=== PATIENT | male | born 1980 | race American Indian/Alaskan Native ===

== ENCOUNTER 2021-10-19 16:44 | Emergency (ER) | payer SELFPAY ==
[2021-10-19 16:49] VITALS: BP 122/79
--- NOTE | 2021-10-19 17:46 | XRay Report ---
Right ankle 3 views INDICATION: Right ankle pain following injury IMPRESSION: There is prominent edema identified within the right ankle. Grossly intact lateral malleo lar and medial malleolar hardware. No acute displaced fracture is identified. There is a chronic appe aring ossific fragment along the dorsal aspect of the navicular bone Signer Name: Lc Roberto MD Signed: 10/19/2021 5:42 PM Workstation Name: [id number]
--- NOTE | 2021-10-19 17:47 | XRay Report ---
Right foot 3 views INDICATION: Right foot pain after injury IMPRESSION: There is prominent soft tissue edema along the dorsal aspect of the distal forefoot. No u nderlying fracture or subluxation is identified. Signer Name: Lc Roberto MD Signed: 10/19/2021 5:42 PM Workstation Name: [id number]
--- NOTE | 2021-10-19 18:20 | Emergency Department Report ---
ED Lower Extremity HPI - General Chief Complaint: Extremity Injury, Lower Stated Complaint: LEG PAIN Time Seen by Provider: 10/19/21 17:01 Source: patient Mode of arrival: Ambulatory Limitations: No Limitations - History of Present Illness Initial Comments: Patient is a 41-year-old male presents emergency room complaints of a right lower leg injury that occurred yesterday. Patient states that he got crushed in between a ash and a door. He states he has been ambulatory since then. He states he has a previous injury to this right lower extremity and he has hardware in place from a surgery. He denies any numbness or weakness. No allergies to meds. - Related Data Previous Rx's Medication Instructions Recorded Last Taken Type Ibuprofen [Motrin 600 MG tab] 600 mg PO Q8H PRN #20 tablet 10/19/21 Unknown Rx traMADoL [Ultram 50 MG tab] 50 mg PO Q6HR PRN #12 tablet 10/19/21 Unknown Rx Allergies Allergy/AdvReac Type Severity Reaction Status Date / Time No Known Allergies Allergy Verified 10/19/21 17:57 ED Review of Systems ROS: Stated complaint: LEG PAIN Other details as noted in HPI Comment: All other systems reviewed and negative ED Past Medical Hx - Medications Home Medications: Home Medications Medication Instructions Recorded Confirmed Last Taken Type Ibuprofen [Motrin 600 MG tab] 600 mg PO Q8H PRN #20 tablet 10/19/21 Unknown Rx traMADoL [Ultram 50 MG tab] 50 mg PO Q6HR PRN #12 tablet 10/19/21 Unknown Rx ED Physical Exam - General Limitations: No Limitations General appearance: alert, in no apparent distress - Head Head exam: Present: atraumatic, normocephalic - Eye Eye exam: Present: normal appearance - ENT ENT exam: Present: mucous membranes moist - Extremities Exam Extremities exam: Present: other (ttp and edema present to the right lateral lower leg, ankle, and foot, ecchymosis present, abrasion present to the right lateral lower leg, FROM, neurovascularly intact) - Neurological Exam Neurological exam: Present: alert, oriented X3 - Psychiatric Psychiatric exam: Present: normal affect, normal mood - Skin Skin exam: Present: warm, dry ED Course Vital Signs 10/19/21 16:48 Temperature 99.7 F H Pulse Rate 116 H Respiratory 15 Rate Blood Pressure 122/79 O2 Sat by Pulse 98 Oximetry ED Lower Extremity MDM - Radiology Data Radiology results: report reviewed Ordering Physician: AMMY CHERRY Date of Service: 10/19/21 Procedure(s): XR foot 3+V RT Accession Number(s): [id number] cc: AMMY CHERRY Fluoro Time In Minutes: Right foot 3 views INDICATION: Right foot pain after injury IMPRESSION: There is prominent soft tissue edema along the dorsal aspect of the distal forefoot. No underlying fracture or subluxation is identified. Signer Name: Lc Roberto MD Signed: 10/19/2021 5:42 PM Workstation Name: [id number] Transcribed By: Dictated By: Lc Roberto MD Electronically Authenticated By: Lc Roberto MD Signed Date/Time: 10/19/211741 DD/ 41 TD/TT: Ordering Physician: AMMY CHERRY Date of Service: 10/19/21 Procedure(s): XR ankle 3+V RT Accession Number(s): [id number] cc: AMMY CHERRY Fluoro Time In Minutes: Right ankle 3 views INDICATION: Right ankle pain following injury IMPRESSION: There is prominent edema identified within the right ankle. Grossly intact lateral malleolar and medial malleolar hardware. No acute displaced fracture is identified. There is a chronic appearing ossific fragment along the dorsal aspect of the navicular bone Signer Name: Lc Roberto MD Signed: 10/19/2021 5:42 PM Workstation Name: [id number] Transcribed By: Dictated By: Lc Roberto MD Electronically Authenticated By: Lc Roberto MD Signed Date/Time: 10/19/211741 DD/ 38 TD/TT: - Medical Decision Making Patient is a 41-year-old male presents emergency room complaints of a right lower leg injury that occurred yesterday. Patient states that he got crushed in between a ash and a door. He states he has been ambulatory since then. He states he has a previous injury to this right lower extremity and he has hardware in place from a surgery. He denies any numbness or weakness. No allergies to meds. On exam:ttp and edema present to the right lateral lower leg, ankle, and foot, ecchymosis present, abrasion present to the right lateral lower leg, FROM, neurovascularly intact. Wound care performed by nurse. No signs of any infection. No cellulitis. Compartments are soft. X-rays performed and showThere is prominent edema identified within the right ankle. Grossly intact lateral malleolar and medial malleolar hardware. No acute displaced fracture is identified. There is a chronic appearing ossific fragment along the dorsal aspect of the navicular bone. There is prominent soft tissue edema along the dorsal aspect of the distal forefoot. No underlying fracture or subluxation is identified. Discussed findings with patient. Patient evaluated by Dr. Leahy, ER attending who advised outpatient orthopedic follow-up and Dwight wrap/postop shoe. Dwight wrap and postop shoe placed by EMT and pt remained neurovascularly intact. advised pt Please take medication as prescribed as needed. May use ice for symptoms at a time, rest, elevation of leg. Please do not wear Dwight bandage too tightly. Follow-up with orthopedic doctor. Return to emergency room for any new worsening symptoms. Critical care attestation.: If time is entered above; I have spent that time in minutes in the direct care of this critically ill patient, excluding procedure time. ED Disposition Clinical Impression: Crushing injury of right leg Qualifiers: Encounter type: initial encounter Qualified Code(s): S87.81XA - Crushing injury of right lower leg, initial encounter Disposition: 01 HOME / SELF CARE / HOMELESS Is pt being admited?: No Does the pt Need Aspirin: No Condition: Stable Instructions: Crush Injury of the Foot Additional Instructions: Please take medication as prescribed as needed. May use ice for symptoms at a time, rest, elevation of leg. Please do not wear Dwight bandage too tightly. Follow-up with orthopedic doctor. Return to emergency room for any new worsening symptoms. Prescriptions: Ibuprofen [Motrin 600 MG tab] 600 mg PO Q8H PRN #20 tablet PRN Reason: Pain traMADoL [Ultram 50 MG tab] 50 mg PO Q6HR PRN #12 tablet PRN Reason: Pain , Severe (7-10) Referrals: NAFISA KRISHNAMURTHY MD [Staff Physician] - 3-5 Days [facility] [Provider Group] - 3-5 Days Time of Disposition: 18:19 Print Language: BURMESE
[2021-10-19] MEDS ORDERED: NEOMY 3.5 MG/BACIT 400 UNITS/POLY B 5000 UNITS/GM OINT PACKET TP ONE (19:00)
== END 2021-10-19 18:35 | disposition home or self-care (01) ==
LOC: ED 16:44
DX: S87.81XA Crushing injury of right lower leg, initial encounter (principal); W22.8XXA Striking against or struck by other objects, initial encounter; Y93.89 Activity, other specified; Y92.89 Other specified places as the place of occurrence of the external cause; Y99.8 Other external cause status
CPT/HCPCS: 99283